=== PATIENT | male | born 1960 | race African-American/Black ===

== ENCOUNTER 2025-09-24 01:37 | Emergency (ER) | payer SELFPAY ==
[~2025-09-24] VITALS: Ht 188 cm; Wt 90.0 kg
[2025-09-24 01:45] VITALS: O2SAT 100
[2025-09-24] MEDS: CYCLOBENZAPRINE 10MG TABLET PO ONE (02:05)
[2025-09-24] MEDS: KETOROLAC 15MG/ML VIAL IM ONE (02:05)
[2025-09-24] MEDS ORDERED: CYCL10TA21 MT (03:27)
[2025-09-24] MEDS ORDERED: NAPR-1176 MT (03:27)
[2025-09-24 03:45] VITALS: BP 150/77; PULSE 90; RESP 16; TEMP 36.9; O2SAT 100
== END 2025-09-24 03:45 | disposition home or self-care (01) ==
LOC: ER 01:46
DX: M79.651 Pain in right thigh (principal); Z79.899 Other long term (current) drug therapy
CPT/HCPCS: 99285; 93971; 73502; 73551; 96372; J1885